=== PATIENT | male | born 1960 | race Caucasian/White ===

== ENCOUNTER → 2018-03-07 11:11 | Outpatient (REF) | payer BC, SELFPAY ==
[2018-03-07 13:56] LABS: Basophils # 0.1 K/mm3 (0-0.2); Basophils % 1.1 % (0.1-2.0); Eosinophils # 0.3 K/mm3 (0.0-0.4); Eosinophils % 3.5 % (0.1-12.0); Hematocrit 45.8 % (42.0-52.0); Lymphocytes # 2.5 K/mm3 (0.7-4.5); Lymphocytes % 28.9 K/mm3 (10-50); Mean Corpuscular HGB Conc 32.8 g/dL (31.8-35.4); Mean Corpuscular Hemoglobin 29.9 pg (27.0-31.2); Mean Corpuscular Volume 91.1 fl (80-94); Monocytes # 0.7 K/mm3 (0.1-1.0); Monocytes % 7.4 % (1.7-9.3); Neutrophils # 5.1 K/mm3 (1.8-7.8); Neutrophils % 59.2 % (37.0-80.0); Platelet Count 267 K/mm3 (142-424); Red Blood Count 5.02 M/mm3 (4.60-6.20); Red Cell Distribution Width 12.7 % (11.5-17.5); White Blood Count 8.7 K/mm3 (4.8-10.8)
[2018-03-07 14:06] LABS: Alanine Aminotransferase 53 U/L (12-78); Albumin Level 3.8 gm/dL (3.4-5.0); Albumin/Globulin Ratio 1.2 (1.1-1.8); Alkaline Phosphatase 89 U/L (46-116); Anion Gap 14.9 mEq/L (5-15); Aspartate Amino Transferase 22 U/L (15-37); Bilirubin,Total 0.5 mg/dL (0.2-1.0); Blood Urea Nitrogen 13 mg/dL (7-18); Calcium 9.3 mg/dL (8.5-10.1); Carbon Dioxide 25 mmol/L (21.0-32.0); Chloride 105 mmol/L (98-107); Chol/HDL Ratio 3.7 (1-3.5); Cholesterol 152 mg/dL (140-200); Creatinine,Serum 0.87 mg/dL (0.70-1.30); Estimated Glomerular Filt Rate 91 ml/min (>60); GFR (African American) 110 ML/MIN (>60); Globulin 3.3 gm/dl (1.3-3.2); Glucose 85 mg/dL (74-106); HDL Cholesterol 41 mg/dL (27-67); LDL Cholesterol 89 mg/dL (0-130); Potassium 4.9 mmoL/L (3.5-5.1); Sodium 140 mmol/L (136-145); Thyroid Stimulating Hormone 1.54 uIU/ml (0.358-3.740); Total Protein,Serum 7.1 gm/dL (6.4-8.2); Triglycerides 108 mg/dL (30-200); VLDL Cholesterol 22 mg/dL (0-40)
== END ==
LOC: LAB 11:11
PROVIDERS: Visit Provider Emergency Medicine
DX: M79.89 Other specified soft tissue disorders (principal); Z79.899 Other long term (current) drug therapy
CPT/HCPCS: 80053; 80061; 84439; 84443; 85025

== ENCOUNTER → 2018-06-06 13:50 | Outpatient (CLI) | payer BC, SELFPAY ==
[2018-06-06 14:31] LABS: Amphetamine/Metha Screen,Urine Negative ng/mL (<1000); Barbiturates Screen,Urine Negative ng/mL (<200); Benzodiazepines Screen,Urine Positive ng/mL (<200); Cannabinoid Screen,Urine Positive ng/mL (<50); Cocaine Screen,Urine Negative ng/mL (<300); Methadone Screen,Urine Negative ng/mL (<300); Opiate Screen,Urine Negative ng/mL (<300); Phencyclidine Screen,Urine Negative ng/mL (<25)
[2018-06-12 11:16] LABS: Alprazolam Negative (Cutoff=100); Benzodiazepines Positive ng/mL (Cutoff=100); Clonazepam Negative (Cutoff=100); Flurazepam Negative (Cutoff=100); Lorazepam Negative (Cutoff=100); Midazolam Negative (Cutoff=100); Temazepam Positive (.); Triazolam Negative (Cutoff=100)
== END ==
PROVIDERS: Visit Provider Emergency Medicine
DX: Z79.899 Other long term (current) drug therapy (principal)
CPT/HCPCS: 80305; 80346

== ENCOUNTER 2018-07-04 13:00 | Outpatient (RCR) | payer BC, SELFPAY ==
--- NOTE | 2018-06-27 13:36 | HMH.PTOPWND ---
Rehab Outpt Wound Evaluation Rehab OP Wound Evaluation Start: 06/27/18 12:59 Freq: Status: Active Protocol: Document 06/27/18 13:30 PHOSHABNAM (Rec: 06/27/18 13:36 PHORNE [id number]) Electronically Signed By Boy Jones, PT 06/27/18 13:30 Subjective/History History History Pt is a 57 yowm who presents with c/o increased erin LE edema x ~ 2 yrs with indsidious onset of symptoms. He reports his prescribed lasix has decreased the edema, but not completely alleviated it. He also reports his edema decreases with elevation. He is a former smoker, but does not show any outward signs of PVD and he states his heart has been checked without any problems discovered. He reports no c/o pain or numbness in the legs, but they do feel tight and heavy when edema increases. He reports PMH of HTN and several kidney stones removed laproscopically . Lymphedema Eval Classification of Lymphedema Secondary Lymphedema Yes Stemmer's sign Stemmer's Sign no Stage of Lymphedema Lymphedema stages Stage I (Pitting edema, reduces w/ elevation, no fibrosis) Skin Changes Dry Skin Yes Taut, Shiny Skin Yes Redness Yes Affected Extremities Areas Affected by Lymphedema/Edema Right Lower Extremity Left Lower Extremity Manual Lymphatic Drainage Treatment Area MLD Treatment Area Abdomen Right Lower Extremity Left Lower Extremity Wound Problems/Impairments Impairments Problems/Impairmments Impaired Recreational Activities Increased Edema Lymphedema Present Impaired Self Care/Self Management Prognosis Rehab Potential Good Clinical Impression Consistent with Diagnosis Yes Short Term Goals Number of Weeks 4 Patient to Understand Lymphedema Yes Treatment and Exercises Decrease Girth Measurments by (cm) Yes: by 5 cm Long-Term Goals Number of Weeks
== END 2018-07-04 13:05 | disposition home or self-care (01) ==
LOC: PT 13:00
PROVIDERS: Visit Provider Emergency Medicine
DX: R60.9 Edema, unspecified (principal)
CPT/HCPCS: 97140; 97162; 97760

== ENCOUNTER → 2018-09-05 14:13 | Outpatient (CLI) | payer BC, SELFPAY ==
[2018-09-05 16:24] LABS: Amphetamine/Metha Screen,Urine Negative ng/mL (<1000); Barbiturates Screen,Urine Negative ng/mL (<200); Benzodiazepines Screen,Urine Positive ng/mL (<200); Cannabinoid Screen,Urine Positive ng/mL (<50); Cocaine Screen,Urine Negative ng/mL (<300); Methadone Screen,Urine Negative ng/mL (<300); Opiate Screen,Urine Negative ng/mL (<300); Phencyclidine Screen,Urine Negative ng/mL (<25)
== END ==
PROVIDERS: Visit Provider Emergency Medicine
DX: Z79.891 Long term (current) use of opiate analgesic (principal)
CPT/HCPCS: 80305

== ENCOUNTER → 2019-03-01 12:44 | Outpatient (CLI) | payer BC, SELFPAY ==
--- NOTE | 2019-03-01 13:06 | CT_ITS ---
CT angio chest HISTORY: Edema, shortness of breath ITS.REASON: dyspnea ORDERING PHYSICIAN: Og Finn MD PATIENT AGE: 58 years COMPARISON: None TECHNIQUE: Contrast Used:70ml Optiray 350 Axial images were obtained. Sagittal, and coronal reformatted images are also generated and reviewed. All CT scans at the facility use one or more dose reduction, viz: automated exposure control, ma/kV adjustment per patient size (including targeted exams where dose is matched to indication, i.e. head), or iterative reconstruction technique. FINDINGS: PULMONARY ARTERIES:No pulmonary embolus evident. AORTA:No acute finding. No thoracic aortic aneurysm or dissection evident LUNGS:Calcified granuloma right upper lobe. Mild subpleural atelectatic change within the left upper lobe and lingula PLEURAL SPACES:No significant effusion. No evidence of pneumothorax. HEART:Unremarkable. Normal heart size. No significant pericardial effusion. MEDIASTINAL AND HILAR STRUCTURES:Small hiatal hernia BONY STRUCTURES:Degenerative changes thoracic spine LYMPH NODES:Scattered small nodes in the mediastinum UPPER ABDOMEN:Nonspecific 5 mm isodense is present in the central aspect of the liver too small to categorize. There is eventration of left hemidiaphragm IMPRESSION: 1. No acute finding. No evidence of pulmonary embolus. 2. Nonacute nonspecific findings as described above
[2019-03-01 14:21] LABS: Anion Gap 8.7 mEq/L (5-15); Blood Urea Nitrogen 21 mg/dL (7-18); Calcium 8.9 mg/dL (8.5-10.1); Carbon Dioxide 26 mmol/L (21.0-32.0); Chloride 85 mmol/L (98-107); Creatinine,Serum 0.96 mg/dL (0.70-1.30); Estimated Glomerular Filt Rate 81 ml/min (>60); GFR (African American) 98 ML/MIN (>60); Glucose 79 mg/dL (74-106); Potassium 3.7 mmoL/L (3.5-5.1); Sodium 116 mmol/L (136-145)
== END ==
PROVIDERS: Visit Provider Internal Medicine Cardiovascular Disease
DX: E66.9 Obesity, unspecified (principal); I10 Essential (primary) hypertension; R06.00 Dyspnea, unspecified; R06.01 Orthopnea; Z01.810 Encounter for preprocedural cardiovascular examination; R60.0 Localized edema
CPT/HCPCS: 36415; 71275; 80048; 83880; Q9967

== ENCOUNTER → 2019-03-07 10:42 | Outpatient (CLI) | payer BC, SELFPAY ==
--- NOTE | 2019-03-07 10:44 | CA_ITS ---
APPROVED REPORT EXAM: Comprehensive 2D, Doppler, and color-flow Echocardiogram Mail Sorter And Delivery: Neetu Shi RT(R) Ht: 6 ft 1 in Wt: 264lbs BSA: 2.42 BP: 121/86 mmHg Indications: Pre-Op Clearance, Obesity, Dyspnea, Hypertension/HDD Left Ventricle Left atrium is normal size, left ventricle is normal size, there is no concentric left ventricular hypertrophy, visually estimated ejection fraction 55% with no regional wall motion abnormality. Diastolic parameters are within normal range. Right Ventricle Right atrium right ventricular normal size and contractility. Aortic Valve The aortic valve is minimally thickened and fibrosed, there is no aortic stenosis aortic insufficiency. Mitral Valve Mitral valve is grossly normal, there is no mitral stenosis, there is mild mitral regurgitation. Tricuspid Valve Tricuspid valve is grossly normal, there is mild tricuspid regurgitation, tricuspid regurgitation jet velocity is inadequate for calculation of the right ventricular systolic pressure. Pulmonic Valve Pulmonic valve is poorly visualized. Great Vessels Aortic root is normal size. Pericardium No significant pericardial effusion noted. 2D Dimensions LVOT 2.20 cm (M/F) 1.5-2.5 M-Mode Dimensions RVDd 2.20 cm (0.9-2.6) LA Diam 3.40 cm (1.9-4.0) LVDd 5.10 cm (3.5-5.7) Ao Diam 2.90 cm (2.0-3.7) LVDs 4.00 cm (3.5-5.7) AV Cusp 2.30 cm (1.5-2.6) IVSd 0.70 cm (0.6-1.1) PWd 1.00 cm (0.6-1.1) EF (Teich) 43.50% FS 21.60% EDV (Teich) 124.00 mL ESV (Teich) 70.00 mL LV Diastology E/A Ratio 1.00 MED E' 9.50 (< 7 cm/sec) E'/MED E' Ratio 8.10 (>14) LAT E' 11.40 (<10 cm/sec) E/LAT E' Ratio 6.70 (>14) Mitral Valve MV E Max Darin. 76.50 (40-130 cm/s) MV A Velocity 80.50 (40-130 cm/s) E/A Ratio 1.00 Tricuspid Valve TR P. Velocity 250.00 cm/s RAP Estimate 10.00 mmHg RVSP 35.00 mmHg Conclusion 1. Normal left ventricular size, preserved left ventricular systolic function, visually estimated ejection fraction of 55% with no regional wall motion abnormality, diastolic parameters are within normal range. 2. Mild mitral and tricuspid regurgitation 3. No significant pericardial effusion noted. Electronically signed by : Og Finn, 03/07/2019 17:48:34
--- NOTE | 2019-03-07 10:44 | CA_ITS ---
APPROVED REPORT Bilateral Lower Extremity Venous Study for DVT. Printer Machine: ELISSA Indications Lower Extremity Edema: Shortness of breath lower ext edema/dyspnea Vein Imaging CFV (R): compressive, spontaneous, phasic, augmentation FEM (R): compressive, spontaneous, phasic, augmentation POP (R): compressive, spontaneous, phasic, augmentation PTV (R): compressive, spontaneous, phasic, augmentation GSV (R): compressive, spontaneous, phasic, augmentation Peroneals (R):compressive, spontaneous, phasic, augmentation GAS (R): compressive, spontaneous, phasic, augmentation CFV (L): compressive, spontaneous, phasic, augmentation FEM (L): compressive, spontaneous, phasic, augmentation POP (L): compressive, spontaneous, phasic, augmentation PTV (L): compressive, spontaneous, phasic, augmentation GSV (L): compressive, spontaneous, phasic, augmentation Peroneals (L):compressive, spontaneous, phasic, augmentation GAS (L): compressive, spontaneous, phasic, augmentation Findings No evidence of DVT or superficial thrombophlebitis in the veins scanned of the right lower extremity. No evidence of DVT or superficial thrombophlebitis in the veins scanned of the left lower extremity. No valvular insufficiency demonstrated in the veins scanned of the right lower extremity. No valvular insufficiency demonstrated in the veins scanned of the left lower extremity. Conclusion No evidence of DVT or superficial thrombophlebitis in the veins scanned of the right lower extremity. No evidence of DVT or superficial thrombophlebitis in the veins scanned of the left lower extremity. No valvular insufficiency demonstrated in the veins scanned of the right lower extremity. No valvular insufficiency demonstrated in the veins scanned of the left lower extremity. Electronically signed by : Jorge Alberto Mathews MD 03/07/2019 19:33:02
== END ==
PROVIDERS: PCP Emergency Medicine; Visit Provider Internal Medicine Cardiovascular Disease
DX: Z01.810 Encounter for preprocedural cardiovascular examination (principal); R06.00 Dyspnea, unspecified; R06.01 Orthopnea; R60.0 Localized edema; E66.9 Obesity, unspecified; I10 Essential (primary) hypertension
CPT/HCPCS: 93306; 93970

== ENCOUNTER → 2019-03-12 14:19 | Outpatient (CLI) | payer BC, SELFPAY ==
[2019-03-12 15:41] LABS: Amphetamine/Metha Screen,Urine Negative ng/mL (<1000); Barbiturates Screen,Urine Negative ng/mL (<200); Benzodiazepines Screen,Urine Positive ng/mL (<200); Cannabinoid Screen,Urine Positive ng/mL (<50); Cocaine Screen,Urine Negative ng/mL (<300); Methadone Screen,Urine Negative ng/mL (<300); Opiate Screen,Urine Negative ng/mL (<300); Phencyclidine Screen,Urine Negative ng/mL (<25)
== END ==
PROVIDERS: Visit Provider Emergency Medicine
DX: Z79.899 Other long term (current) drug therapy (principal)
CPT/HCPCS: 80305

== ENCOUNTER → 2019-03-21 07:36 | Outpatient (CLI) | payer BC, SELFPAY ==
--- NOTE | 2019-03-21 07:37 | NM_ITS ---
APPROVED REPORT Exam: Nuclear Stress Test Indication: SOB, Swelling Patient Location: Outpatient Stress Tech: Oxana HidalgoStanton [place] Tech:Eden Chaudhary SHANNASean RT(R)(N) Ht: 6 ft 1 in Wt: 265 lbs BSA: 2.42 m2 HR: 71 bpm BP: 114/64 mmHg BMI: 34.9 History: SOB, Swelling Procedure: Patient exercised on Hood protocol 5 minutes and sec, resting heart rate 71 bpm, resting blood pressure 114/64 mmHg, with exercise maximum heart rate achived was 165 bpm which is 101 % of the maximum predicted heart rate and blood pressure was 190/80 bpm. Test was stopped due to max effort. Patient denied any complaint of chest pain. Patient has Adequate exercise capacity, achieved 7.0 METs of workload on treadmill, the blood pressure response to exercise was Normal. Electrocardiogram Resting electrocardiogram showed sinus rhythm, with exercise there is less than 1.[address] segment depression noted from the baseline EKG. The EKG portion of the exercise Myoview is negative for ischemia. Cardiac Stress and Resting SPECT Images: Cardiac Stress and Resting SPECT images were obtained using technetium 99m Myoview 32 mCi stress and 10 mCi at rest. Gated SPECT with analysis of segmental wall motion and calculation of ejection fraction also done. Cardiac stress and resting SPECT images show uniform myocardial activity without segmental perfusion abnormality, computer derived ejection fraction is over 65% with no regional wall motion abnormality, right ventricle is normal size and contractility. Conclusion: 1. The EKG portion of the exercise Myoview is negative for ischemia, patient has adequate exercise capacity achieved 7 mets of workload on treadmill, the blood pressure response to exercise was adequate, there was no exercise-induced chest discomfort. 2. No scintigraphic evidence of reversible ischemia seen, computer derived ejection fraction is over 65% with no regional wall motion abnormality, right ventricle is normal size and contractility. 3. Normal exercise Myoview study. Electronically signed by : Og Finn, 03/28/2019 16:09:47
--- NOTE | 2019-03-21 10:02 | CA_ITS ---
APPROVED REPORT Exam: Exercise Treadmill Technologist: amaya rendon, Ht: 6 ft 1 in Wt: 265 lbs BSA: 2.42 m2 HR: 71 bpm BP: 114/64 mmHg Rhythm: NSR Medical History Medications: Lasix,,,,, Allergies: NKA Stress Test Details Test: Hood HR Resting HR: 82 bpm Max Heart Rate (APMHR): 163 bpm Max HR Achieved: 165 bpm Target HR (85% APMHR): 138 bpm % of APMHR: 101 Recovery HR: 134 bpm BP Resting BP: 114.0/64.0 mmHg Max BP: 165.0/82.0 mmHg Recovery BP: 190.0/80.0 mmHg ECG Resting ECG: NSR,RBBB,LOW VOLTAGE QRS IN PRECORDIAL LEADS Clinical Exercise duration: 05:00 min Highest Stage Achieved: Exercise capacity: 7.0 METs Stress ECG Conclusion MAX HEART RATE 165 WHICH IS 101% OF PM FOR AGE. MAX BP 190/80. METS = 7.0. TEST STOPPED DUE SOA. SYMPTOMS: DYSPNEA BUT NO CHEST PAIN. ARRHYTHMIAS/ECTOPY: NONE. ST-T CHANGES: ALLOWING FOR MOTION ARTIFACT,THE ST RESPONSE TO EXERCISE IS WITHIN NORMAL. NORMAL GXT. LIMITED EXERCISE TOLERANCE DUE TO DYSPNEA. MYOVIEW IMAGES REPORTED SEPARATELY. Electronically signed by : Iraj Lehman, 03/21/2019 13:08:30
--- NOTE | 2019-03-21 10:56 | HMH.ITSHM ---
Current Home Medications as stated by this patient Chris Bryant or packaging sales representative. [] FUROSEMIDE DIAZEPAM
[2019-03-21 11:20] VITALS: PULSE 71; PULSE 74
== END ==
PROVIDERS: PCP Emergency Medicine; Visit Provider Internal Medicine Cardiovascular Disease
DX: I10 Essential (primary) hypertension (principal); R06.00 Dyspnea, unspecified; R60.9 Edema, unspecified; Z01.810 Encounter for preprocedural cardiovascular examination
CPT/HCPCS: 78452; 93017; 94060; 94640; 94726; 94729; A9502

== ENCOUNTER → 2019-09-25 15:11 | Outpatient (CLI) | payer BC, SELFPAY ==
--- NOTE | 2019-09-25 15:14 | MM_ITS ---
PROCEDURE: MM DIG MAMM DX UNILAT LT CAD Digital Breast Tomosynthesis Included CLINICAL INDICATION: increased size in left breast COMPARISON: No exams were available for comparison TECHNIQUE: Standard CC and MLO images and 3D Tomosynthesis was obtained. R2 CAD reviewed. FINDINGS: The breast tissue is almost entirely fatty. There is no suspicious lesions seen. In particular there are no findings to suggest gynecomastia. IMPRESSION: Slightly enlarged breast composed of normal appearing fat BI-RAD Category: 1 Negative FOLLOW-UP: 1YR 1 Year Follow-up no follow-up necessary unless there are new symptoms or additional enlargement (A letter has been sent to the patient regarding results of the study.) Dictated by: Dr. Dileep Steinberg MD 09/27/2019 12:[address] Dileep Steinberg MD in [place] 09/27/2019 12:11
== END ==
PROVIDERS: PCP Emergency Medicine; Visit Provider Emergency Medicine
DX: N62 Hypertrophy of breast (principal)
CPT/HCPCS: 77061; 77065; G0279

== ENCOUNTER → 2019-12-30 07:33 | Outpatient (CLI) | payer BC, SELFPAY ==
[2019-12-30 15:26] LABS: Coronavirus 19 IgG Antibody Negative (Negative); Coronavirus 19 IgM Antibody Negative (Negative)
== END ==
PROVIDERS: Visit Provider Surgery
DX: Z01.818 Encounter for other preprocedural examination (principal)
CPT/HCPCS: 36415; 86328

== ENCOUNTER 2019-12-31 07:21 | Day surgery (SDC) | payer BC, SELFPAY ==
--- NOTE | 2019-12-27 10:52 | SUR.PREOP ---
12/27/2019 @ 9526--PHONE CALL MADE TO PATIENT. PATIENT UNDERSTANDS THAT LAB WORK AND COVID TESTING NEEDS TO BE COMPLETED @ 0800 ON 12/30/2019. PATIENT UNDERSTANDS IF LAB WORK AND COVID-19 TESTS ARE NOT COMPLETED BY 12PM ON THAT DATE, THE SURGERY SCHEDULED WILL BE CANCELLED AND RESCHEDULED FOR ANOTHER TIME.
[2019-12-30 14:20] VITALS: BMI 34.2
[2019-12-31 07:42] VITALS: BP 123/86; PULSE 88; RESP 18; TEMP 36.6; O2SAT 96
--- NOTE | 2019-12-31 08:03 | P.PN_ITS ---
[facility] Anesthesia Checklist - Structural Data Admitted From: Home Planned Operative Procedure/s: egd Consent for Planned Operative Procedure(s) Verified: Yes - Airway Assessment C-Spine Mobility Assessed: Yes TMJ Mobility Assessed: Yes Dentition: Poor Dentition - Neurological Assessment Level of Consciousness: Awake, Alert, Appropriate - Anesthesia Plan Anesthesia Risk discussed: Yes Anesthesia Plan: Verified ASA Class: II Anesthesia Type: MAC [facility] History I have reviewed the patient's past medical history: Yes Medical History: Reports:: Anxiety, Gastroesophageal Reflux Disease(GERD), Hypertension, Kidney Stones Denies:: Cancer, Diabetes Mellitus Type 1, Diabetes Mellitus Type 2, Internal Pacemaker, MRSA, Seizures *Have you ever received a pneumonia vaccine?: No *Have you received a flu vaccine this season?: No Anesthesia experience/problems:: none Laterality Cases: Bilateral: Tonsillectomy Other Surgeries: Yes: Cardiac Surgery, Colonoscopy, Coronary Stent, EGD, Other. No: Pacemaker Amputation: No Fractures: Yes - *Social History Educational Level: Completed High School Smoking Status: Never smoker #Yrs smoked (if former smoker): 30 Alcohol Intake: current Alcohol Intake Frequency:: a few times a month Substance Use Type: denies use *Occupational Status:: employed Housing: house Household Members: spouse *Travel in the last 8 weeks: None - Psychiatric History Pschychiatric History:: Reports:: Anxiety Family Hx:: No significant family history
--- NOTE | 2019-12-31 08:30 | HMH.GSHP ---
HPI HPI: Patient is a 58-year-old male whom I had seen previously for colonoscopy. He is referred by Dr. Morrison for upper endoscopy. He gives a history of indigestion symptoms intermittently for several years. However, recently has had more significant symptoms. He describes acid buildup in his throat when lying down in the evening. He had tried some Prilosec and had improvement of his symptoms and this was therefore prescribed by his primary care provider. He was asked specifically about symptoms of dysphasia and he does occasionally feel like food transiently does stick in the esophagus but this is usually been self-limited. It was felt that he should undergo upper endoscopy. [facility] History I have reviewed the patient's past medical history: Yes Medical History: Reports:: Anxiety, Gastroesophageal Reflux Disease(GERD), Hypertension, Kidney Stones Denies:: Cancer, Diabetes Mellitus Type 1, Diabetes Mellitus Type 2, Internal Pacemaker, MRSA, Seizures *Have you ever received a pneumonia vaccine?: No *Have you received a flu vaccine this season?: No Anesthesia experience/problems:: none Laterality Cases: Bilateral: Tonsillectomy Other Surgeries: Yes: Cardiac Surgery, Colonoscopy, Coronary Stent, EGD, Other. No: Pacemaker Amputation: No Fractures: Yes - *Social History Educational Level: Completed High School Smoking Status: Never smoker #Yrs smoked (if former smoker): 30 Alcohol Intake: current Alcohol Intake Frequency:: a few times a month Substance Use Type: denies use *Occupational Status:: employed Housing: house Household Members: spouse *Travel in the last 8 weeks: None - Psychiatric History Pschychiatric History:: Reports:: Anxiety Family Hx:: No significant family history Review of Systems - Review of Systems Review of systems:: pertinent systems reviewed and negative unless documented below Meds Home Medications Medication Instructions Recorded Confirmed Type spironolactone 25 mg tablet 25 mg PO Q OTHER DAY PRN #60 tab 03/29/19 12/30/19 Rx Furosemide [Furosemide 40MG tAB] 40 mg PO DAILY 05/13/19 12/30/19 History Potassium Chloride [Pot Chlor 8 8 meq PO DAILY 05/13/19 12/30/19 History mEq Tab] Omeprazole See Rx Instructions .ROUTE .COMPLEX 12/30/19 12/30/19 History Allergies Allergy/AdvReac Type Severity Reaction Status Date / Time No Known Allergies Allergy Verified 12/31/19 07:42 Exam Vital signs and Labs for Last 24 Hours: Temp Pulse Resp BP Pulse Ox 97.9 F 88 18 123/86 96 12/31/19 07:42 12/31/19 07:42 12/31/19 07:42 12/31/19 07:42 12/31/19 07:42 I & O for Last 24 hours: Intake & Output 12/28/19 12/29/19 12/30/19 12/31/19 11:59 11:59 11:59 11:59 Weight 260 lb - *Routine HEENT Exam Head: Present: normocephalic Eye: Present: EOMI, PERRL ENT: Present: mucous membranes moist - *Routine Neck Exam Present: supple. Absent: lymphadenopathy - *Routine Respiratory Exam Present: CTA bilaterally - *Routine Cardiovascular Exam Present: RRR - *Routine Abdominal Exam Present: soft, normoactive bowel sounds. Absent: tenderness - *Routine Extremities Exam Absent: cyanosis, clubbing, edema - *Routine Skin Exam Present: warm. Absent: rash - *Routine Neurological Exam Present: alert, oriented X3 Assessment and Plan - Assessment and plan all Dx Assessment and Plan for all problems:: Plan for esophagogastroduodenoscopy
[2019-12-31 08:42] VITALS: O2SAT 96
--- NOTE | 2019-12-31 08:57 | P.PCN_ITS ---
- Procedure: Date: 12/31/19 Procedure Performed:: Esophagogastroduodenoscopy with biopsies Indications:: Patient is a 58-year-old male whom I had seen previously for colonoscopy. He is referred by Dr. Morrison for upper endoscopy. He gives a history of indigestion symptoms intermittently for several years. However, recently has had more significant symptoms. He describes acid buildup in his throat when lying down in the evening. He had tried some Prilosec and had improvement of his symptoms and this was therefore prescribed by his primary care provider. He was asked specifically about symptoms of dysphasia and he does occasionally feel like food transiently does stick in the esophagus but this is usually been self-limited. It was felt that he should undergo upper endoscopy. Patient does state that his reflux symptoms have improved with omeprazole. However he does have some o ngoing symptoms described as a sensation that food builds up and gets stuck . Performing Provider:: Aris Burgess MD Referring Provider:: Jesse Morrison MD Sedation:: Propofol Procedure:: Patient was taken to endoscopy procedure room. He was positioned in a lateral decubitus position. Adequate intravenous sedation was achieved with anesthesia titration of propofol. Olympus endoscope was inserted via the oropharynx advanced through the esophagus. Overall esophagus appeared relatively unremarkable other than some minor tortuosity. Stomach was cannulated and insufflated. Retroflexion revealed a moderate sliding hiatal hernia. Gastric lumen appeared relatively unremarkable other than minor nonerosive gastritis. Gastric antral mucosal biopsy was obtained for CLOtest for H. pylori. Biopsy was obtained for histopathologic analysis as well. Pylorus was traversed and the endoscope was advanced to the duodenal sweep which was unremarkable. Endoscope was withdrawn into the distal esophagus and he did have a moderate sliding hiatal hernia. Biopsies were obtained at the gastroesophageal junction. A couple of distal esophageal biopsies were obtained. Endoscope was withdrawn. Findings:: Small to moderate sliding hiatal hernia Recommendations:: Plan to follow-up in histopathologic analysis and H. pylori status. Treat H. pylori if positive. Continue proton pump inhibitors. Hiatal hernia likely contributing to symptomatology Complications:: None immediately apparent Estimated blood obtained (mL): 3
[2019-12-31 09:00] VITALS: BP 131/79; PULSE 80; RESP 16; TEMP 36.3; O2SAT 93
[2019-12-31 09:10] VITALS: BP 149/84; PULSE 75; RESP 16; O2SAT 98
[2019-12-31 09:20] VITALS: BP 133/84; PULSE 71; RESP 16; O2SAT 98
[2019-12-31 09:30] VITALS: BP 138/84; PULSE 70; RESP 16; O2SAT 98
== END 2019-12-31 09:30 | disposition home or self-care (01) ==
LOC: OUTP 07:22
PROVIDERS: PCP Emergency Medicine; Visit Provider Surgery
PROC: 0DJ08ZZ Inspection of Upper Intestinal Tract, Via Natural or Artificial Opening Endoscopic (ICD-10-PCS; CPT 43235; principal; 2019-12-31 08:30)
DX: K44.9 Diaphragmatic hernia without obstruction or gangrene (principal); K22.2 Esophageal obstruction; K21.9 Gastro-esophageal reflux disease without esophagitis; I10 Essential (primary) hypertension; F41.9 Anxiety disorder, unspecified; Z87.442 Personal history of urinary calculi; Z79.899 Other long term (current) drug therapy; Z72.0 Tobacco use
CPT/HCPCS: 43239; 87339

== ENCOUNTER → 2020-01-27 17:18 | Outpatient (CLI) | payer BC, SELFPAY ==
[2020-01-29 15:53] LABS: Prolactin 12.6 ng/mL (4.0-15.2)
== END ==
PROVIDERS: Visit Provider Emergency Medicine
DX: N64.4 Mastodynia (principal)
CPT/HCPCS: 84146

== ENCOUNTER → 2020-02-13 13:25 | Outpatient (CLI) | payer BC, SELFPAY ==
--- NOTE | 2020-02-13 13:35 | CT_ITS ---
PROCEDURE: CT HEAD/BRAIN WO/W CON CLINICAL INDICATION: Helical with attn Pituitary gland Gynecomastia, evaluate for pituitary adenoma the COMPARISON: No exams were available for comparison TECHNIQUE: IV Contrast: 100ML OPITRAY 320 Axial images obtained. All CT scans at the facility use one or more dose reduction, viz: automated exposure control, ma/kV adjustment per patient size (including targeted exams where dose is matched to indication, i.e. head), or iterative reconstruction technique. FINDINGS: Helical images are performed without and with contrast enhancement. Sagittal and coronal reformatted images are also performed the. No midline shift, mass effect, intracranial hemorrhage, or hydrocephalus is evident. The cerebellopontine angles, cerebellum, and brainstem are unremarkable. There is no evidence of pituitary mass. There is partial empty sella as a normal variant. No aneurysm or AVM apparent. Mild atheromatous calcification involves the cavernous portion of the ICAs.. No acute bony findings. The mastoid sinuses are well aerated. No paranasal sinus air-fluid level IMPRESSION: Negative CT brain without and with contrast. No pituitary mass. There is a partial empty sella as a normal variant Dictated by: Jorge Alberto Mathews MD 02/13/2020 17:39 Electronically signed by Jorge Alberto Mathews MD in [place] 02/13/2020 17:39
[2020-02-13 13:58] LABS: Blood Urea Nitrogen 17 mg/dl (9-20); Estimated Glomerular Filt Rate 87 ml/min (>60); GFR (African American) 105 ML/MIN (>60)
== END ==
PROVIDERS: PCP Emergency Medicine; Visit Provider Emergency Medicine
DX: N62 Hypertrophy of breast (principal); N64.4 Mastodynia
CPT/HCPCS: 36415; 70470; 82565; 84520; Q9967

== ENCOUNTER → 2020-03-11 13:44 | Outpatient (CLI) | payer BC, SELFPAY ==
--- NOTE | 2020-03-11 13:46 | CA_ITS ---
APPROVED REPORT EXAM: Comprehensive 2D, Doppler, and color-flow Echocardiogram Assignment Officer: Betsy Ott CRT Ht: 6 ft 1 in Wt: 257lbs BSA: 2.39 BP: 117/77 mmHg Indications: Shortness of Breath, Obesity, Hypertension/HDD 2D Dimensions LVOT 1.88 cm (M/F) 1.5-2.5 M-Mode Dimensions RVDd 2.43 cm (0.9-2.6) LVDd 5.01 cm (3.5-5.7) LVDs 3.76 cm (3.5-5.7) IVSd 1.32 cm (0.6-1.1) PWd 0.82 cm (0.6-1.1) EF (Teich) 49.20% FS 25.00% EDV (Teich) 118.80 mL ESV (Teich) 60.40 mL LV Diastology E/A Ratio 1.17 Mitral Valve MV A Velocity 60.00 (40-130 cm/s) Left Ventricle Left atrium is mildly enlarged, left ventricle is normal size, mild concentric left ventricular hypertrophy, visually estimated ejection fraction 55% with no regional wall motion abnormality, diastolic parameters are within normal range. Right Ventricle Right atrium and right ventricle mildly enlarged with normal contractility. Aortic Valve Aortic valve is minimally thickened and fibrosed, there is no aortic stenosis or aortic insufficiency. Mitral Valve Mitral valve is grossly normal. There is mild mitral regurgitation. Tricuspid Valve Tricuspid valve grossly normal, there is mild tricuspid regurgitation, tricuspid regurgitation jet velocity is inadequate for calculation of the right ventricular systolic pressure. Great Vessels Aortic root is normal size. Pericardium No significant pericardial effusion noted. Conclusion 1. Mild biatrial enlargement, normal left ventricular size, mild concentric left ventricular hypertrophy, visually estimated ejection fraction 55% with no regional wall motion abnormality diastolic parameters are within normal range. 2. Mildly enlarged right ventricle with normal contractility. 3. Mild mitral and tricuspid regurgitation. 4. No significant pericardial effusion noted. Electronically signed by : Og Finn, 03/12/2020 10:47:35
[2020-03-11 15:32] LABS: Chloride 102 mmol/L (98-107); Potassium 4.7 mmoL/L (3.5-5.1); Sodium 140 mmol/L (136-145)
[2020-03-11 15:35] LABS: Blood Urea Nitrogen 18 mg/dl (9-20); Estimated Glomerular Filt Rate 87 ml/min (>60); GFR (African American) 105 ML/MIN (>60)
[2020-03-11 15:36] LABS: Anion Gap 13.7 mEq/L (5-15); Calcium 9.4 mg/dl (8.4-10.2); Carbon Dioxide 29 mmol/L (22.0-30.0); Glucose 85 mg/dl (74-100)
[2020-03-11 15:45] LABS: NT Pro Brain Natriuretic Pep. 60.7 pg/mL (0-125)
== END ==
PROVIDERS: PCP Emergency Medicine; Visit Provider Internal Medicine Cardiovascular Disease
DX: R06.02 Shortness of breath (principal); R60.0 Localized edema; I10 Essential (primary) hypertension; E66.9 Obesity, unspecified; G47.33 Obstructive sleep apnea (adult) (pediatric)
CPT/HCPCS: 36415; 80048; 83880; 93306

== ENCOUNTER → 2020-08-25 17:51 | Outpatient (CLI) | payer BC, SELFPAY ==
[2020-08-25 18:28] LABS: Basophils # 0.1 K/mm3 (0-0.2); Basophils % 1.1 % (0.1-2.0); Eosinophils # 0.1 K/mm3 (0.0-0.4); Eosinophils % 1.3 % (0.1-12.0); Hematocrit 49.1 % (42.0-52.0); Lymphocytes # 3.2 K/mm3 (0.7-4.5); Lymphocytes % 33.9 % (10-50); Mean Corpuscular HGB Conc 32.6 g/dL (31.8-35.4); Mean Corpuscular Hemoglobin 29.8 pg (27.0-31.2); Mean Corpuscular Volume 91.4 fl (80-94); Mean Platelet Volume 10.8 fl (7.4-10.4); Monocytes # 0.5 K/mm3 (0.1-1.0); Monocytes % 5.5 % (1.7-9.3); Neutrophils # 5.5 K/mm3 (1.8-7.8); Neutrophils % 58.2 % (37.0-80.0); Platelet Count 284 K/mm3 (142-424); Red Blood Count 5.37 M/mm3 (4.60-6.20); Red Cell Distribution Width 13.1 % (11.5-17.5); White Blood Count 9.4 K/mm3 (4.8-10.8)
[2020-08-25 18:57] LABS: Alanine Aminotransferase 33 U/L (12-78); Albumin Level 4.6 g/dl (3.5-5.0); Albumin/Globulin Ratio 1.6 (1.1-1.8); Alkaline Phosphatase 80 U/L (38-126); Aspartate Amino Transferase 34 U/L (17-59); Bilirubin,Total 0.5 mg/dl (0.2-1.3); Blood Urea Nitrogen 19 mg/dl (9-20); Calcium 9.5 mg/dl (8.4-10.2); Carbon Dioxide 26 mmol/L (22.0-30.0); Chloride 105 mmol/L (98-107); Estimated Glomerular Filt Rate 87 ml/min (>60); GFR (African American) 105 ML/MIN (>60); Globulin 2.9 g/dL (1.3-3.2); Glucose 91 mg/dl (74-100); Sodium 139 mmol/L (136-145); Total Protein,Serum 7.5 g/dl (6.3-8.2)
[2020-08-25 19:11] LABS: Free T4 (Free Thyroxine) 1.29 ng/dl (0.78-2.19)
[2020-08-25 19:25] LABS: Thyroid Stimulating Hormone 1.97 uIU/mL (0.465-4.68)
== END ==
PROVIDERS: Visit Provider Emergency Medicine
DX: R16.0 Hepatomegaly, not elsewhere classified (principal); R18.8 Other ascites
CPT/HCPCS: 80053; 84439; 84443; 85025

== ENCOUNTER → 2020-09-15 07:39 | Outpatient (CLI) | payer BC, SELFPAY ==
--- NOTE | 2020-09-15 07:39 | US_ITS ---
PROCEDURE: US ABDOMEN COMPLETE CLINICAL INDICATION: hepatomegaly and ascites COMPARISON: No exams were available for comparison FINDINGS: PANCREAS: Pancreas is not well delineated due to overlying bowel gas. CT or MRI without and with contrast with pancreatic protocol may provide further evaluation if clinically desired. LIVER: Diffuse increased echogenicity of the liver with poor through transmission of sound consistent with hepatic steatosis. No focal liver lesion demonstrated. There is appropriate direction of blood flow within non dilated portal vein. RIGHT KIDNEY: Unremarkable. Normal size and echogenicity. No hydronephrosis LEFT KIDNEY: Unremarkable. Normal size and echogenicity. No hydronephrosis GALLBLADDER: No gallstones, gallbladder wall thickening, pericholecystic fluid, or biliary dilatation. AORTA: No evidence of aneurysmal dilatation. SPLEEN: Mild splenomegaly at cm ASCITES: None demonstrated. IMPRESSION: Fatty liver. Mild splenomegaly. Dictated by: Jorge Alberto Mathews MD 09/15/2020 17:13 Jorge Alberto Mathews MD in [place] 09/15/2020 17:13
== END ==
PROVIDERS: PCP Emergency Medicine; Visit Provider Emergency Medicine
DX: R16.0 Hepatomegaly, not elsewhere classified (principal); R18.8 Other ascites
CPT/HCPCS: 76700

== ENCOUNTER → 2020-12-14 10:27 | Outpatient (POV) | payer BC, SELFPAY ==
[2020-12-14 12:33] LABS: Basophils % 0.5 % (0.1-2.0); Eosinophils % 0.5 % (0.1-12.0); Hematocrit 42.5 % (42.0-52.0); Hemoglobin 14.4 g/dL (14.1-18.0); Lymphocytes # 2.7 K/mm3 (0.7-4.5); Lymphocytes % 30.5 % (10-50); Mean Corpuscular HGB Conc 33.8 g/dL (31.8-35.4); Mean Corpuscular Hemoglobin 29.2 pg (27.0-31.2); Mean Corpuscular Volume 86.2 fl (80-94); Mean Platelet Volume 9.3 fl (7.4-10.4); Monocytes # 0.5 K/mm3 (0.1-1.0); Monocytes % 5.3 % (1.7-9.3); Neutrophils # 5.5 K/mm3 (1.8-7.8); Neutrophils % 63.2 % (37.0-80.0); Platelet Count 269 K/mm3 (142-424); Red Blood Count 4.93 M/mm3 (4.60-6.20); Red Cell Distribution Width 12.9 % (11.5-17.5); White Blood Count 8.7 K/mm3 (4.8-10.8)
[2020-12-14 13:17] LABS: Alanine Aminotransferase 24 U/L (12-78); Albumin Level 4.6 g/dl (3.5-5.0); Albumin/Globulin Ratio 1.8 (1.1-1.8); Alkaline Phosphatase 81 U/L (38-126); Anion Gap 13.5 mEq/L (5-15); Aspartate Amino Transferase 23 U/L (17-59); Bilirubin,Total 0.7 mg/dl (0.2-1.3); Blood Urea Nitrogen 16 mg/dl (9-20); Calcium 9.4 mg/dl (8.4-10.2); Carbon Dioxide 26 mmol/L (22.0-30.0); Chloride 104 mmol/L (98-107); Estimated Glomerular Filt Rate 86 ml/min (>60); GFR (African American) 105 ML/MIN (>60); Globulin 2.6 g/dL (1.3-3.2); Glucose 85 mg/dl (74-100); Potassium 4.5 mmoL/L (3.5-5.1); Sodium 139 mmol/L (136-145); Total Protein,Serum 7.2 g/dl (6.3-8.2)
[2020-12-16 23:33] LABS: ALT (SGPT) P5P 23 IU/L (0-55); AST (SGOT) P5P 17 IU/L (0-40); Alpha 2-Macroglobulins, Qn 189 mg/dL (110-276); Apolipoprotein A-1 115 mg/dL (101-178); Bilirubin, Total 0.5 mg/dL (0.0-1.2); Cholesterol, Total 152 mg/dL (100-199); Fibrosis Score 0.24 (0.00-0.21); Fibrosis Stage F0-F1 (.); GGT 16 IU/L (0-65); Glucose 84 mg/dL (65-99); Haptoglobin 169 mg/dL (29-370); Steatosis Grade S1 - Mild Steatosis (.); Steatosis Score 0.39 (0.00-0.30); Triglycerides 63 mg/dL (0-149)
== END ==
PROVIDERS: Visit Provider Nurse Practitioner Family
DX: K76.9 Liver disease, unspecified (principal)
CPT/HCPCS: 36415; 80053; 85025

== ENCOUNTER → 2021-02-18 17:10 | Outpatient (CLI) | payer BC, SELFPAY ==
[2021-02-18 17:38] LABS: Basophils # 0.1 K/mm3 (0-0.2); Basophils % 0.7 % (0.1-2.0); Eosinophils # 0.1 K/mm3 (0.0-0.4); Eosinophils % 1.7 % (0.1-12.0); Hematocrit 43.3 % (42.0-52.0); Hemoglobin 14.6 g/dL (14.1-18.0); Lymphocytes # 2.9 K/mm3 (0.7-4.5); Mean Corpuscular HGB Conc 33.6 g/dL (31.8-35.4); Mean Corpuscular Hemoglobin 29.5 pg (27.0-31.2); Mean Corpuscular Volume 87.8 fl (80-94); Monocytes # 0.4 K/mm3 (0.1-1.0); Monocytes % 5.5 % (1.7-9.3); Neutrophils # 4.4 K/mm3 (1.8-7.8); Neutrophils % 55.1 % (37.0-80.0); Platelet Count 255 K/mm3 (142-424); Red Blood Count 4.94 M/mm3 (4.60-6.20); Red Cell Distribution Width 13.2 % (11.5-17.5); White Blood Count 7.9 K/mm3 (4.8-10.8)
[2021-02-18 17:39] LABS: Chloride 104 mmol/L (98-107); Potassium 4.8 mmoL/L (3.5-5.1); Sodium 139 mmol/L (136-145)
[2021-02-18 17:42] LABS: Alanine Aminotransferase 22 U/L (12-78); Albumin Level 4.4 g/dl (3.5-5.0); Albumin/Globulin Ratio 1.7 (1.1-1.8); Alkaline Phosphatase 76 U/L (38-126); Anion Gap 13.8 mEq/L (5-15); Aspartate Amino Transferase 27 U/L (17-59); Bilirubin,Total 0.6 mg/dl (0.2-1.3); Blood Urea Nitrogen 14 mg/dl (9-20); Calcium 9.3 mg/dl (8.4-10.2); Carbon Dioxide 26 mmol/L (22.0-30.0); Cholesterol 152 mg/dl (140-200); Estimated Glomerular Filt Rate 99 ml/min (>60); GFR (African American) 120 ML/MIN (>60); Globulin 2.6 g/dL (1.3-3.2); Glucose 78 mg/dl (74-100); Triglycerides 87 mg/dl (30-150); VLDL Cholesterol 17 mg/dL (0-40)
[2021-02-18 17:43] LABS: Chol/HDL Ratio 3.8 (1-3.5); HDL Cholesterol 40 mg/dl (40-60)
[2021-02-18 17:54] LABS: Direct LDL Cholesterol 83.39 mg/dL (100-129)
[2021-02-18 17:58] LABS: 25-OH Vitamin D, Total 37.3 ng/mL (30-100)
[2021-02-18 18:00] LABS: Free T4 (Free Thyroxine) 1.18 ng/dl (0.78-2.19)
[2021-02-18 18:14] LABS: Thyroid Stimulating Hormone 1.73 uIU/mL (0.465-4.68)
== END ==
PROVIDERS: Visit Provider Physician Assistant
DX: R06.00 Dyspnea, unspecified (principal); R60.9 Edema, unspecified; F41.9 Anxiety disorder, unspecified; E66.3 Overweight; Z68.28 Body mass index [BMI] 28.0-28.9, adult
CPT/HCPCS: 80053; 80061; 82306; 84439; 84443; 85025

== ENCOUNTER → 2021-03-09 14:24 | Outpatient (POV) | payer BC, SELFPAY | PROVIDERS: Visit Provider Dermatology | DX: Z00.00 Encounter for general adult medical examination without abnormal findings (principal) ==

== ENCOUNTER → 2022-04-27 11:50 | Outpatient (CLI) | payer BC, SELFPAY | PROVIDERS: PCP Emergency Medicine; Visit Provider Surgery | DX: Z01.812 Encounter for preprocedural laboratory examination (principal); Z20.822 Contact with and (suspected) exposure to COVID-19; Z12.11 Encounter for screening for malignant neoplasm of colon | CPT/HCPCS: C9803; U0003; U0005 ==

== ENCOUNTER 2022-04-29 08:29 | Day surgery (SDC) | payer BC, SELFPAY ==
[2022-04-26 14:08] VITALS: BMI 25.2
[2022-04-29 08:46] VITALS: BP 136/79; PULSE 62; RESP 18; TEMP 36.4; O2SAT 97
--- NOTE | 2022-04-29 09:01 | EXP.ANES.CKL ---
PFSH PFS Medical History Dyspnea Edema History of COVID-19 History of gastroesophageal reflux (GERD) Hypertension Kidney stone Skin cancer Sleep apnea Tonsillectomy planned Surgical History H/O removal of cyst Family History Other No significant family history Social History (Updated 04/29/22 @ 08:55 by Kirti Hodge RN) Smoking Status: Former smoker pack-years: 30 years smoked: 28 smoking status stop date: 2011 second hand exposure: Yes alcohol intake: current counseling provided: provider counseling substance use type: denies use current occupational status: employed Travel in the last 8 weeks: None household members: spouse housing: house current occupation: Equipment Installation Professional current occupational exposures/hazards: No caffeine: Yes [facility] Anesthesia Checklist Patient Identification Patient Identification: Arm Band Structural Data Admitted From: Home Planned Operative Procedure/s: colonoscopy Consent for Planned Operative Procedure(s) Verified: Yes Verified Documents: Surgical Consent and History and Physical NPO Status Verified Time NPO: 00:00 Additional verifications Anesthesia Reactions: No Airway Assessment C-Spine Mobility Assessed: Yes TMJ Mobility Assessed: Yes Dentition: Good Dentition Neurological Assessment Level of Consciousness: Awake and Alert Anesthesia Plan Anesthesia Risk discussed: Yes Anesthesia Plan: Verified ASA Class: II Anesthesia Type: MAC
[2022-04-29 09:31] VITALS: O2SAT 98
--- NOTE | 2022-04-29 10:42 | P.PCN_ITS ---
Procedure: Date: 04/29/22 Patient Date of :: 1960 Procedure Performed:: Total colonoscopy to terminal ileum with multiple polypectomy using hot snare, cold snare, cold biopsy, hot biopsy Indications:: Patient is a 61-year-old male with history of positive Cologuard whom I had performed colonoscopy in 2019. At that time he was found to have 11 polyps. Most of these were hyperplastic. However he had several tubular adenomas and had a relatively large ascending colon sessile serrated adenoma. 2-year follow- up colonoscopy was recommended. Patient recently has some hemorrhoid symptoms that were managed by his primary care provider. Performing Provider:: Aris Burgess MD Referring Provider:: Jesse Morrison Sedation:: MAC sedation Procedure:: Patient history was obtained and appropriate physical examination was performed. Patient's medications and allergies were reviewed. Informed consent was obtained after explaining the benefits, alternatives, and risks of the procedure including, but not limited to, bleeding, perforation, missed lesions, and adverse reaction to anesthesia medications. Patient was transported to endoscopy procedure room. Patient was connected to monitoring devices. Throughout the procedure the patient's blood pressure, pulse, and oxygen saturations were monitored continuously. Patient identification and planned procedure were verified by the staff. Patient was positioned in lateral decubitus position. Digital anorectal exam was performed. Variable stiffness Olympus colonoscope was inserted and advanced under direct visualization to the cecum. Adequacy of the colonic preparation was noted. The colonoscope was advanced a short distance into the terminal ileum. The colonoscope was then slowly withdrawn while carefully examining the color, texture, anatomy, and integrity of the mucosoa circumferentially. Within the rectum retroflexion was performed. Colonoscope was then withdrawn. IMPRESSION: Patient had numerous polyps. There was a small adenomatous cecal polyp removed with cold biopsy forceps. Additional cecal polyp removed partially with cold snare with residual polyp removed with biopsy forceps. There is an a sending colon ridge polyp removed with hot snare with residual polyp removed with cold biopsy forceps. There was a proximal transverse polyp removed with cold snare with residual polyp removed with cold biopsy forceps. Distal transverse colon polyp removed with cold snare. Ascending colon polyp removed with biopsy forceps x2. Sigmoid colon polyp x5 removed with cold biopsy forceps. These were hyperplastic appearing. Rectosigmoid polyp removed with cold biopsy forceps. Rectal polyp overlying rectal vein removed with hot biopsy forceps. He did have some rare sigmoid diverticuli. Findings:: Polyps as noted above. Total of at least 14 polyps removed. Most notable was a sending colon polyp as a ridge polyp removed with hot snare in a piecemeal fashion and residual polyp with forceps. Recommendations:: Follow-up colonoscopy pending pathology. Likely 2 or 3 years. Complications:: None immediately apparent Estimated blood obtained (mL): 3
[2022-04-29 10:44] VITALS: BP 129/83; PULSE 63; RESP 16; TEMP 36.3; O2SAT 100
[2022-04-29 10:54] VITALS: BP 113/72; PULSE 65; RESP 17; O2SAT 100
[2022-04-29 11:04] VITALS: BP 125/75; PULSE 61; RESP 17; O2SAT 100
[2022-04-29 11:14] VITALS: BP 122/91; PULSE 72; RESP 18; O2SAT 100
== END 2022-04-29 11:15 | disposition home or self-care (01) ==
PROVIDERS: PCP Emergency Medicine; Visit Provider Surgery
PROC: 0DJD8ZZ Inspection of Lower Intestinal Tract, Via Natural or Artificial Opening Endoscopic (ICD-10-PCS; CPT 45380; principal; 2022-04-29 09:30)
DX: Z12.11 Encounter for screening for malignant neoplasm of colon (principal); K63.5 Polyp of colon; Z86.010 Personal history of colon polyps; Z79.899 Other long term (current) drug therapy
CPT/HCPCS: 45380; 45384; 45385; J2704

== ENCOUNTER → 2023-04-12 11:20 | Outpatient (CLI) | payer BC, SELFPAY | PROVIDERS: PCP Internal Medicine; Visit Provider Internal Medicine | DX: M25.572 Pain in left ankle and joints of left foot (principal); R53.83 Other fatigue ==

== ENCOUNTER → 2023-04-12 13:37 | Outpatient (CLI) | payer BC, SELFPAY ==
--- NOTE | 2023-04-12 13:42 | XR_ITS ---
FINAL REPORT CLINICAL HISTORY: pain medial interior to malleolus FINDINGS: Left ankle Three views were obtained. There is no acute fracture or dislocation. The joint spaces appear normal. There is a well corticated ossific density inferior to the medial malleolus. The mortise appears intact. There is a moderate plantar spur. IMPRESSION: Well corticated ossific density inferior to the medial malleolus. Reviewed, Interpreted and Dictated by Nasim Orourke MD Transcribed by Kaylee Oh Authenticated and [facility]
--- NOTE | 2023-04-12 13:42 | XR_ITS ---
FINAL REPORT CLINICAL HISTORY: pain medial interior to malleolus FINDINGS: Left foot Three views were obtained. There is no acute fracture or dislocation. The joint spaces appear normal. No soft tissue abnormality is identified. There is a moderate plantar spur. IMPRESSION: No acute process. Reviewed, Interpreted and Dictated by Nasim Orourke MD Transcribed by Kaylee Oh Authenticated and [facility]
[2023-04-12 20:19] LABS: Anion Gap 17.2 mEq/L (5-15); Blood Urea Nitrogen 13 mg/dl (9-20); Calcium 9.6 mg/dl (8.4-10.2); Carbon Dioxide 23 mmol/L (22.0-30.0); Chloride 105 mmol/L (98-107); Estimated Glomerular Filt Rate 86 ml/min (>60); GFR (African American) 104 ML/MIN (>60); Glucose 98 mg/dl (74-100); Potassium 4.2 mmoL/L (3.5-5.1); Sodium 141 mmol/L (136-145)
== END ==
LOC: RAD 13:39
PROVIDERS: Internal Medicine; PCP Emergency Medicine; Visit Provider Emergency Medicine
DX: M25.572 Pain in left ankle and joints of left foot (principal); R53.83 Other fatigue
CPT/HCPCS: 73610; 73630; 80048

== ENCOUNTER 2024-05-10 07:26 | Day surgery (SDC) | payer BC, SELFPAY ==
[2024-05-09 11:42] VITALS: BMI 24.3
--- NOTE | 2024-05-10 07:09 | P.PCN_ITS ---
Procedure: Date: 05/10/24 Patient Date of :: 1960 Procedure Performed:: Total colonoscopy to terminal ileum with biopsy Indications:: Patient is a 63-year-old male who presents for follow-up colonoscopy. He has a history of positive Cologuard. I performed colonoscopy in 2019 at which time he had 11 polyps removed. He had ascending colon fragments of sessile serrated adenoma and a couple of tubular adenomas. Follow-up colonoscopy on 04/29/2022 revealed 14 polyps. There was a large ridge polyp in the ascending colon. He had 4 sessile serrated adenomas and a tubular adenoma. 2-year follow-up co lonoscopy was recommended. Performing Provider:: Aris Burgess MD Referring Provider:: Reji Amos MD Sedation:: MAC sedation Procedure:: Patient history was obtained and appropriate physical examination was performed. Patient's medications and allergies were reviewed. Informed consent was obtained after explaining the benefits, alternatives, and risks of the procedure including, but not limited to, bleeding, perforation, missed lesions, and adverse reaction to anesthesia medications. Patient was transported to endoscopy procedure room. Patient was connected to monitoring devices. Throughout the procedure the patient's blood pressure, pulse, and oxygen saturations were monitored continuously. Patient identification and planned procedure were verified by the staff. Patient was positioned in lateral decubitus position. Digital anorectal exam was performed. Variable stiffness Olympus colonoscope was inserted and advanced under direct visualization to the cecum. Adequacy of the colonic preparation was noted. The colonoscope was advanced a short distance into the terminal ileum. The colonoscope was then slowly withdrawn while carefully examining the color, texture, anatomy, and integrity of the mucosoa circumferentially. Within the rectum retroflexion was performed. Colonoscope was then withdrawn. Impression: Colonic preparation was good. Colonoscope was easily advanced into the distal ileum. It was withdrawn through the colon with careful surveillance. There were tiny nodule in the cecum likely lymphoid aggregate. Biopsies were obtained. There was some minimal sigmoid diverticulosis. No obvious polyps noted. Findings:: Lymphoid aggregate in the cecum Mild sigmoid diverticulosis Recommendations:: Given his prior history of numerous polyps as well as numerous sessile serrated adenomas plan for a follow-up colonoscopy in 3 years. If this is unremarkable may increase screening interval. Complications:: None immediately apparent Estimated blood obtained (mL): 1 Colonoscopy Component Colonoscopy Component Was a colonoscopy performed during today's procedure?: Yes Recommended follow up colonoscopy of at least 10 years?: No If no, follow up colonoscopy recommended in ___ years?: See above Reason for not recommending >/= 10 yr follow-up interval?: See above
--- NOTE | 2024-05-10 07:38 | EXP.ANES.CKL ---
[facility] Disclaimer: The information contained in this section may have been updated after the patient was seen, as this information can be updated by other users. Medical History Dyspnea Edema History of COVID-19 History of gastroesophageal reflux (GERD) Hypertension Kidney stone Skin cancer LEFT ARM Sleep apnea Tonsillectomy planned Surgical History H/O removal of cyst Family History Other No significant family history Social History Smoking Status: Former smoker years smoked: 28 smoking status stop date: 2011 second hand exposure: Yes alcohol intake: never counseling provided: provider counseling substance use type: denies use current occupational status: employed Travel in the last 8 weeks: None household members: spouse housing: house current occupation: Small Business Representative current occupational exposures/hazards: No caffeine: Yes [facility] Anesthesia Checklist Patient Identification Patient Identification: Arm Band and Verbal (Name & ) Structural Data Admitted From: Home Planned Operative Procedure/s: Colonoscopy Consent for Planned Operative Procedure(s) Verified: Yes Verified Documents: Surgical Consent and History and Physical NPO Status Verified Time NPO: 20:00 Chart Verification Results Verified: CBC, BMP, ECG and Chest Xray Additional verifications Patient : No Anesthesia Reactions: No Cardiovascular Assessment Heart Sounds: S1 & S2 Pulse Rhythm: Irregular Peripheral Edema: No Airway Assessment Mallampati Score:: Class II C-Spine Mobility Assessed: Yes (FROM demonstrated) TMJ Mobility Assessed: Yes Dentition: Good Dentition (Nothing loose per pt.) Neurological Assessment Level of Consciousness: Awake, Alert, Appropriate and Follows Commands Hx Seizures: No Numbness or tingling in extremities: No Anesthesia Plan Anesthesia Risk discussed: Yes Anesthesia Plan: Verified ASA Class: III Anesthesia Type: MAC
[2024-05-10 07:39] VITALS: BP 162/88; PULSE 67; RESP 18; TEMP 36.1; O2SAT 100
[2024-05-10] MEDS: LACTATED RINGERS 1000ML 1,000 ML 100 ML IV (07:45)
[2024-05-10 07:50] VITALS: O2SAT 98
[2024-05-10 08:20] VITALS: BP 125/71; PULSE 68; RESP 16; TEMP 36.7; O2SAT 99
[2024-05-10 08:30] VITALS: BP 116/82; PULSE 66; RESP 16; O2SAT 100
[2024-05-10 08:40] VITALS: BP 128/77; PULSE 73; RESP 18; O2SAT 100
[2024-05-10 08:50] VITALS: BP 134/86; PULSE 75; RESP 18; O2SAT 100
== END 2024-05-10 08:50 | disposition home or self-care (01) ==
PROVIDERS: PCP Internal Medicine; Visit Provider Surgery
PROC: 0DJD8ZZ Inspection of Lower Intestinal Tract, Via Natural or Artificial Opening Endoscopic (ICD-10-PCS; CPT 45380; principal; 2024-05-10 08:30)
DX: Z86.0101 Personal history of adenomatous and serrated colon polyps (principal); R19.5 Other fecal abnormalities; K57.30 Diverticulosis of large intestine without perforation or abscess without bleeding; D3A.021 Benign carcinoid tumor of the cecum
CPT/HCPCS: 45380; J2704; J7120

== ENCOUNTER 2024-07-01 14:20 | Outpatient (CLI) | payer BC, SELFPAY ==
[2024-07-01 18:37] LABS: Basophils # 0.1 K/mm3 (0-0.2); Basophils % 0.7 % (0.1-2.0); Eosinophils # 0.1 K/mm3 (0.0-0.4); Eosinophils % 1.3 % (0.1-12.0); Hematocrit 41.8 % (42.0-52.0); Lymphocytes # 2.2 K/mm3 (0.7-4.5); Lymphocytes % 26.6 % (10-50); Mean Corpuscular HGB Conc 33.4 g/dL (31.8-35.4); Mean Corpuscular Hemoglobin 30.7 pg (27.0-31.2); Mean Corpuscular Volume 91.8 fl (80-94); Mean Platelet Volume 9.5 fl (7.4-10.4); Monocytes # 0.4 K/mm3 (0.1-1.0); Monocytes % 4.9 % (1.7-9.3); Neutrophils # 5.6 K/mm3 (1.8-7.8); Neutrophils % 66.4 % (37.0-80.0); Platelet Count 254 K/mm3 (142-424); Red Blood Count 4.55 M/mm3 (4.60-6.20); White Blood Count 8.4 K/mm3 (4.8-10.8)
[2024-07-01 19:03] LABS: Alanine Aminotransferase 22 U/L (12-78); Albumin Level 4.1 g/dl (3.5-5.0); Alkaline Phosphatase 63 U/L (38-126); Anion Gap 9.5 mEq/L (5-15); Aspartate Amino Transferase 27 U/L (17-59); Bilirubin,Total 0.4 mg/dl (0.2-1.3); Blood Urea Nitrogen 22 mg/dl (9-20); Calcium 9.5 mg/dl (8.4-10.2); Carbon Dioxide 29 mmol/L (22.0-30.0); Chloride 106 mmol/L (98-107); Estimated Glomerular Filt Rate 98 ml/min (>60); GFR (African American) 119 ML/MIN (>60); Globulin 2.1 g/dL (1.3-3.2); Glucose 78 mg/dl (74-100); Potassium 4.5 mmoL/L (3.5-5.1); Sodium 140 mmol/L (136-145); Total Protein,Serum 6.2 g/dl (6.3-8.2)
[2024-07-01 19:34] LABS: Prostate Specific Ag Screen 1.2 ng/ml (0.0-4.0)
[2024-07-01 21:24] LABS: Creatinine,Urine Random 20 mg/dL (Not Estab.); Microalbumin < 6.000 mg/L (0-16.7)
== END 2024-07-01 23:59 | disposition home or self-care (01) ==
LOC: LAB.DROPOF 07-02 15:21
PROVIDERS: PCP Internal Medicine; Visit Provider Internal Medicine
DX: R19.5 Other fecal abnormalities (principal); I10 Essential (primary) hypertension
CPT/HCPCS: 80053; 82043; 82570; 85025; G0103

== ENCOUNTER 2025-04-02 14:07 | Outpatient (CLI) | payer BC, SELFPAY ==
--- NOTE | 2025-04-02 14:09 | XR_ITS ---
FINAL REPORT CLINICAL HISTORY: pain in LT knee, injury playing basketball FINDINGS: AP, lateral and oblique views of the left knee were obtained. There is no prior exam for comparison. There is no acute osseous abnormality of the left knee. There is mild degenerative joint disease. The soft tissues are normal. There is no joint effusion. IMPRESSION: Mild degenerative joint disease without acute osseous abnormality of the left knee. Reviewed, Interpreted and Dictated by Saskia Callaway MD Transcribed by Savana Valles Authenticated and . [facility]
--- NOTE | 2025-04-02 14:09 | XR_ITS ---
FINAL REPORT CLINICAL HISTORY: pain in LT knee playing basketball -- RT knee for comparison FINDINGS: AP, lateral and oblique views of the right knee were obtained. There is no prior exam for comparison. There is no acute osseous abnormality of the left knee. There is mild degenerative joint disease. The soft tissues are normal. There is no joint effusion. IMPRESSION: Mild degenerative joint disease without acute osseous abnormality of the right knee. Reviewed, Interpreted and Dictated by Saskia Callaway MD Transcribed by Savana Valles Authenticated and [facility]
--- OUTSIDE RECORDS SUMMARY | 2025-04-02 14:09 | XMS_ITS | Clinical Summary ---
Author Organization Healthcare Address [address] [place] [address] Care Team Providers Care Senior Game Designer Name Role Phone Unavailable Primary Care Provider Unavailabl e Immunizations Immunization Administration Dates Next Due Tdap 12/21/2012 Social History Tobacco Use Types Packs/Day Years Used Date Smoking Tobacco: Former Sex and Gender Information Value Date Recorded Sex Assigned at Not on file Legal Sex Male 6:17 PM EDT Gender Identity Not on file Sexual Orientation Not on file Last Filed Vital Signs Vital Sign Reading Time Taken Comments Blood Pressure 140/72 10/24/2018 7:49 AM EDT Pulse 75 10/24/2018 7:49 AM EDT Temperature 36.8 C (98.2 F) 10/24/2018 7:49 AM EDT Respiratory Rate 14 10/24/2018 7:49 AM EDT Oxygen Saturation - - Inhaled Oxygen Concentration - - Weight 120 kg (264 lb 15.9 oz) 10/24/2018 7:49 A M EDT Height 185.4 cm (6' 1 ) 10/24/2018 7:49 AM EDT Body Mass Index 34.96 10/24/2018 7:49 AM EDT Plan of Treatment Health Maintenance Due Date Last Done Comments [facility]-Depression Screening 1960 [facility]-/Child/Adol SDOH Screenings 1960 [facility]- SDOH Screenings 10/17/1979 [facility]-Adult SDOH Screenings 10/17/1979 CT Colonography 2006 Colonoscopy 2006 FIT-DNA 2006 FIT 2006 FOBT 2006 Sigmoidoscopy 2006 [facility]-Colorectal Cancer Screening 2006 [facility]-Pneumococcal Vaccine: 50 + Years (1 of 1 - PCV) 10/17/2011 [facility]-Zoster Vaccines (1 of 2) 10/17/2011 [facility]-DTaP,Tdap,and Td Vaccine s (2 - Td or Tdap) 12/21/2022 12/21/2012 [id number] Vaccine ( - 20 24-25 season) 2025 [facility]-Influenza Vaccine (#1) 2025 [facility]-RSV Vaccine: 60+ Years o r (1 - 1-dose 75+ series) 2036 HPV Vaccines Aged Out No longer eligi ble based on patient's age to complete this topic [facility]-HIB Vaccines Aged Out No longer e ligible based on patient's age to complete this topic [facility]-Hepatitis A Vaccines Aged Out No longer eligible based on patient's age to complete this topic [facility]-IPV Vaccines Aged Out No longer e ligible based on patient's age to complete this topic [facility]-Rotavirus Vaccines Aged Out No lo nger eligible based on patient's age to complete this topic
[2025-04-02 20:56] LABS: Alanine Aminotransferase 23 U/L (12-78); Albumin Level 4.2 g/dl (3.5-5.0); Albumin/Globulin Ratio 1.8 (1.1-1.8); Alkaline Phosphatase 71 U/L (38-126); Anion Gap 8.6 mEq/L (5-15); Aspartate Amino Transferase 25 U/L (17-59); Bilirubin,Total 0.7 mg/dl (0.2-1.3); Blood Urea Nitrogen 17 mg/dl (9-20); Calcium 9.1 mg/dl (8.4-10.2); Carbon Dioxide 28 mmol/L (22.0-30.0); Chloride 105 mmol/L (98-107); Cholesterol 140 mg/dl (140-200); Creatinine,Serum 0.80 mg/dl (0.66-1.25); Estimated Glomerular Filt Rate 98 ml/min (>60); GFR (African American) 118 ML/MIN (>60); Globulin 2.3 g/dL (1.3-3.2); Glucose 85 mg/dl (74-100); HDL Cholesterol 44 mg/dl (40-60); Potassium 4.6 mmoL/L (3.5-5.1); Sodium 137 mmol/L (136-145); Total Protein,Serum 6.5 g/dl (6.3-8.2); Triglycerides 55 mg/dl (30-150)
== END 2025-04-02 23:59 | disposition home or self-care (01) ==
LOC: RAD 14:08
PROVIDERS: PCP Family Medicine; Visit Provider Family Medicine
DX: M17.12 Unilateral primary osteoarthritis, left knee (principal); M17.11 Unilateral primary osteoarthritis, right knee; R60.0 Localized edema; I10 Essential (primary) hypertension; T14.90XA Injury, unspecified, initial encounter; Y93.67 Activity, basketball
CPT/HCPCS: 73562; 80053; 80061

== ENCOUNTER 2025-05-30 08:52 | Outpatient (CLI) | payer BC, SELFPAY ==
--- OUTSIDE RECORDS SUMMARY | 2025-05-30 09:00 | XMS_ITS | Clinical Summary ---
Author Organization Healthcare Address [address] [place] [address] Care Team Providers Care Broadcast Checker Name Role Phone Unavailable Primary Care Provider [...] Date Last Done Comments [facility]-Depression Screening 1960 [facility]-Infant/Child/Adol SDOH Screenings 1960 [facility]- SDOH Screenings 10/17/1979 [facility]-Adult SDOH Screenings 10/17/1979 CT Colonography 2006 Colonoscopy 2006 FIT-DNA 2006 FIT 2006 FOBT 2006 Sigmoidoscopy 2006 [facility]-Colorectal Cancer Screening 2006 [facility]-Pneumococcal Vaccine: 50 + Years (1 of 1 - PCV) 10/17/2011 [facility]-Zoster Vaccines (1 of 2) 10/17/2011 [facility]-DTaP,Tdap,and Td Vaccine s (2 - Td or Tdap) 12/21/2022 12/21/2012 [id number] Vaccine ( - 20 24-25 season) 2025 [...]
[2025-05-30 09:48] VITALS: BMI 27.6
--- NOTE | 2025-05-30 09:49 | XR_ITS ---
FINAL REPORT TECHNIQUE: Chest PA & Lateral CLINICAL HISTORY: pre op for knee surgery, former smoker COMPARISON: None FINDINGS: 2 views of the chest were performed. The heart size is normal. The mediastinum is within normal limits. There is no acute cardiopulmonary process. Calcified granuloma present in the right upper lobe. There are no pleural effusions. There is no pneumothorax. Mild thoracic scoliosis convex to the right. IMPRESSION: No acute cardiopulmonary process. Reviewed, Interpreted and Dictated by Nasim Orourke MD Transcribed by Annabelle Lafleur Authenticated and [facility]
--- NOTE | 2025-05-30 10:12 | ECG_ITS ---
APPROVED REPORT Exam: Resting ECG HR:57 bpm ECG Measurements Heart Rate 57 AXES IN 187 P 52 QRSd 118 QRS 3 QT 393 T 32 QTc 387 Conclusion SINUS BRADYCARDIA MODERATE INTRAVENTRICULAR CONDUCTION DELAY [110+ ms QRS DURATION] BORDERLINE ECG UNCONFIRMED REPORT Electronically signed by : Kamlesh Hong MD 05/30/2025 17:21:31
[2025-05-30 10:21] LABS: Hematocrit 43.2 % (42.0-52.0); Hemoglobin 14.4 g/dL (14.1-18.0); Immature Granulocytes % 0.6 %; Mean Corpuscular HGB Conc 33.3 g/dL (31.8-35.4); Mean Corpuscular Hemoglobin 30.0 pg (27.0-31.2); Mean Corpuscular Volume 90.0 fl (80-94); Nucleated Red Blood Cells % 0 %; Platelet Count 241 K/mm3 (142-424); Red Blood Count 4.80 M/mm3 (4.60-6.20); Red Cell Distribution Width-SD 40.1 fL; White Blood Count 6.4 K/mm3 (4.8-10.8)
[2025-05-30 10:49] LABS: Anion Gap 9.8 mEq/L (5-15); Blood Urea Nitrogen 13 mg/dl (9-20); Calcium 9.4 mg/dl (8.4-10.2); Carbon Dioxide 27 mmol/L (22.0-30.0); Chloride 105 mmol/L (98-107); Creatinine Clearance Estimated 99 mL/min (50-200); Creatinine,Serum 0.80 mg/dl (0.66-1.25); Estimated Glomerular Filt Rate 98 ml/min (>60); GFR (African American) 118 ML/MIN (>60); Glucose 104 mg/dl (74-100); Potassium 4.8 mmoL/L (3.5-5.1); Sodium 137 mmol/L (136-145)
== END 2025-05-30 23:59 | disposition home or self-care (01) ==
LOC: PREOP 08:52
PROVIDERS: PCP Family Medicine; Visit Provider Orthopaedic Surgery
DX: Z01.810 Encounter for preprocedural cardiovascular examination (principal); Z01.811 Encounter for preprocedural respiratory examination; Z01.812 Encounter for preprocedural laboratory examination; I45.89 Other specified conduction disorders; R00.1 Bradycardia, unspecified; R94.31 Abnormal electrocardiogram [ECG] [EKG]; Z87.891 Personal history of nicotine dependence
CPT/HCPCS: 71046; 80048; 85025; 93005

== ENCOUNTER 2025-06-03 08:56 | Day surgery (SDC) | payer BC, SELFPAY ==
[2025-05-30 07:44] VITALS: BMI 27.6
[2025-06-03] VITALS (10 sets, daily range): BP systolic 135–163; BP diastolic 60–101; PULSE 59–75; RESP 16–18; TEMP 36.1–37.3; O2SAT 97–100
--- NOTE | 2025-06-03 11:16 | P.PNANES_ITS ---
[facility] Disclaimer: The information contained in this section may have been updated after the patient was seen, as this information can be updated by other users. Medical History Elevated blood pressure reading Dependent edema Anxiety Obesity (BMI 30.0-34.9) Positive colorectal cancer screening using Cologuard test Tonsillectomy planned Skin cancer Kidney stone Sleep apnea History of COVID-19 History of gastroesophageal reflux (GERD) Edema Dyspnea Hypertension Surgical History Hx of colonoscopy H/O removal of cyst Family History Other No significant family history Social History Smoking Status: Former smoker years smoked: 28 smoking status stop date: 2011 second hand exposure: Yes alcohol intake: never counseling provided: provider counseling substance use type: denies use current occupational status: retired Travel in the last 8 weeks?: None household members: spouse housing: house current occupation: [employer] current occupational exposures/hazards: No caffeine: No Have you lived/traveled outside US in past 30 days?: No Contact w/someone who lives/traveled outside US past 30 days?: No Exposure to someone with infectious disease in past 14 days?: No Do you have a fever (greater than 100.4 F or 38 C)?: No Have you tested positive for COVID-19?: No Exposed to someone with COVID-19 in past 14 days?: No Do you have a sore throat?: No Do you have a cough?: No Do you have any weakness?: No Do you have any diarrhea?: No Are you experiencing any unusual bleeding?: No Do you have any muscle aches/pain?: No Do you have any abdominal pain?: No Are you experiencing loss of taste or smell?: No [facility] Anesthesia Checklist Patient Identification Patient Identification: Verbal (Name & ) Structural Data Admitted From: Home Planned Operative Procedure/s: l knee arthro Consent for Planned Operative Procedure(s) Verified: Yes NPO Status Verified Time NPO: 00:00 Additional verifications Anesthesia Reactions: No Hx Blood Transfusions: No Blood Transfusion Reaction: No Airway Assessment Mallampati Score:: Class II C-Spine Mobility Assessed: Yes TMJ Mobility Assessed: Yes Dentition: Good Dentition Neurological Assessment Level of Consciousness: Awake, Alert and Appropriate Anesthesia Plan Anesthesia Risk discussed: Yes Anesthesia Plan: Verified ASA Class: II Anesthesia Type: General
[2025-06-03] MEDS: BUPIVACAINE 0.25% 30ML VIAL 75 MG (13:01)
[2025-06-03] MEDS: SODIUM CHLORIDE IRRIG SOLUTION 6,000 ML 1000 ML IR (13:01)
--- NOTE | 2025-06-03 13:28 | P.OP_ITS ---
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 Left knee synovitis Procedure performed:: 1. Left knee arthroscopy partial medial meniscectomy 2. Left knee debridement synovectomy anterior compartment medial joint compartment. Surgeon:: Joshua Biggs DO [place] Department Supervisor(s):: Phillip MUSA DOOR WORKER:: Raad Pepe Anesthesia: GETA Estimated blood loss (mL): 0 Operative findings:: See dictation Operative note:: Patient identified preoperatively. Left knee was marked with yes and my initials. Transferred operative suite placed upon operating bed general anesthesia administered airway secured. Left lower extremity prepped and draped within the knee perez. Once prepped and draped final operative timeout performed to identify proper patient procedure and extremity. Everyone involved in the case agreed. Is no counter indications beginning. Did receive preoperative antibiotics. Marking pen was used to jean paul the bony landmarks of the knee and standard portal sites. Esmarch was used to exsanguinate the extremity pneumatic tourniquet inflated to 300 mmHg. Skin knife was used incise standard anterior lateral portal and blunt with trocar was placed in the patellofemoral joint and exchanged with a camera. I swept directly into the medial joint line where the anterior medial portal was established and exchanged with the probe. There was a complex tear of the posterior horn and body of the medial meniscus. There is also an evidence of full-thickness isolated grade IV chondromalacia of the medial tibial plateau. There is significant synovitis in the lateral joint line and anterior compartment. Used a combination of straight biter and sucker shaver partial medial meniscectomy was performed back to stable rim. Once this was complete synovectomy completed in the medial joint line attention was brought to the anterior aspect of the knee significant synovitis was present where synovectomy and debridement was performed. ACL was seen in the intercondylar notch and intact attention was then brought to the lateral joint line within the lateral joint line the cartilage was intact meniscus was intact. Scope into the medial and lateral gutters there were no pathology and back into the patellofemoral joint within the patellofemoral joint there was again significant synovitis present which was debrided with a sucker shaver karen olivia track midline in the trochlea there was softening of the trochlea cartilage grade II and III chondromalacia of the trochlea present. No further pathology was seen the camera was removed. The joint was drained. Local anesthesia infiltrated the portal sites. Skin closed with nylon stitch sterile dressing placed from toe to thigh patient waken from anesthesia and taken recovery in stable condition. Condition: stable Disposition: PACU Complications:: None apparent
--- NOTE | 2025-06-03 13:33 | EXP.ANES.I ---
[facility] Anesthesia Record Part I Anesthesia Record I Intake, IV Amount: 800 Hydration: Adequate Estimated blood loss (mL): 5 Urine output (mL): 0 Blood Products used (#): none Blood Pressure: 163/101 SaO2: 97 Pulse Rate: 72 Airway Patency: Patent Respiratory Rate: 16 Temperature: 99.2 F Patient is:: Drowsy and Stable Stable to PACU at:: 13:30
--- NOTE | 2025-06-04 07:47 | P.PNANES_ITS ---
[facility] Anesthesia Record Part II Anesthesia Record Part II Discharge Time: 14:00 Destination: Surgical Day Care (OP Surgery) PACU nurse assessment reviewed?: Yes Patient Condition:: Good Anesthesia Complications:: None Swallowing reflex intact?: Yes Airway Patency: Patent Cyanosis?: No Blood Pressure: 157/93 SaO2: 100 Respiratory Rate: 18 Pulse Rate: 64 Temperature: 98.9 F Mental Status: Alert & Oriented Pain level:: 0 Nausea and/or vomitting:: None Intake, IV Amount: 0 Hydration: Adequate
[2025-06-04 07:48] VITALS: BP 157/93; PULSE 64; RESP 18; TEMP 37.2; O2SAT 100
== END 2025-06-03 14:35 | disposition home or self-care (01) ==
PROVIDERS: PCP Family Medicine; Visit Provider Orthopaedic Surgery
PROC: (CPT 29870; principal; 2025-06-03 10:30)
DX: S83.232A Complex tear of medial meniscus, current injury, left knee, initial encounter (principal); M65.98 Unspecified synovitis and tenosynovitis, other site; M94.262 Chondromalacia, left knee; M17.12 Unilateral primary osteoarthritis, left knee; Z87.891 Personal history of nicotine dependence; X58.XXXA Exposure to other specified factors, initial encounter
CPT/HCPCS: 29875; 29881; 96374; J0665; J0690; J1100; J1885; J2003; J2250; J2405; J2704; J3010